=== PATIENT | female | born 1960 | race Caucasian/White ===

== ENCOUNTER 2018-03-30 00:07 | Emergency (ER) | payer OTHER ==
[~2018-03-30] VITALS: Ht 167.6 cm; Wt 56.7 kg
[2018-03-30] MEDS ORDERED: MORPHINE SULFATE 4 MG/ML SYR/VIAL IV ONE (01:30)
[2018-03-30] MEDS ORDERED: ONDANSETRON HCL 4 MG/2 ML VIAL IV ONE (01:30)
[2018-03-30 04:00] VITALS: BP 105/67
== END 2018-03-30 04:34 | disposition home or self-care (01) ==
LOC: ER 00:07
DX: S16.1XXA Strain of muscle, fascia and tendon at neck level, initial encounter (principal); S60.229A Contusion of unspecified hand, initial encounter; M62.838 Other muscle spasm; W10.8XXA Fall (on) (from) other stairs and steps, initial encounter; Y93.01 Activity, walking, marching and hiking; Y99.8 Other external cause status; Y92.828 Other wilderness area as the place of occurrence of the external cause
CPT/HCPCS: 70450; 70486; 72040; 73130; 96374; 96375; 99284; J2270; J2405